=== PATIENT | female | born 1985 | race African-American/Black ===

== ENCOUNTER 2023-04-25 08:34 | Emergency (ER) | payer SELFPAY ==
[~2023-04-25] VITALS: Ht 172.7 cm; Wt 75.0 kg
[2023-04-25 11:19] VITALS: BP 142/76
== END 2023-04-25 11:20 | disposition home or self-care (01) ==
LOC: ER 08:34
DX: S93.402A Sprain of unspecified ligament of left ankle, initial encounter (principal); X58.XXXA Exposure to other specified factors, initial encounter; Y93.89 Activity, other specified; Y92.89 Other specified places as the place of occurrence of the external cause; Y99.8 Other external cause status
CPT/HCPCS: 73610; 99283

== ENCOUNTER 2024-09-01 08:00 | Emergency (ER) | payer OTHER ==
[~2024-09-01] VITALS: Ht 170.2 cm; Wt 62.0 kg
[2024-09-01 08:09] VITALS: BP 142/96; PULSE 67; RESP 18; TEMP 97.9; O2SAT 99
[2024-09-01] MEDS ORDERED: METH-653 MT (09:48)
[2024-09-01] MEDS ORDERED: IBUP-2029 MT (09:48)
== END 2024-09-01 10:15 | disposition home or self-care (01) ==
LOC: ER 08:00
DX: S06.0XAA Concussion with loss of consciousness status unknown, initial encounter (principal); V43.62XA Car passenger injured in collision with other type car in traffic accident, initial encounter; Y93.89 Activity, other specified; Y92.89 Other specified places as the place of occurrence of the external cause; Y99.8 Other external cause status
CPT/HCPCS: 81025; 99284